=== PATIENT | female | born 1945 | race Caucasian/White ===

== ENCOUNTER 2017-08-11 18:03 | Inpatient (IN) | payer MEDICARE, BC ==
--- NOTE | 2017-08-11 18:39 | ED ---
General Adult HPI - General Chief complaint: Recheck/Abnormal Lab/Rx Stated complaint: renal failure Time Seen by Provider: 08/11/17 18:05 Source: EMS Mode of arrival: EMS Limitations: no limitations - History of Present Illness Initial comments: This is a 71-year-old female with recent history of end-stage renal disease on dialysis Thursday and Thursday who presents emergency department for missed dialysis. The patient was recently discharged from [facility] after being there for 5 weeks for rehab. She states that since being home her legs become weak and she has not been able to get out of her house. She has not been able to go to dialysis patient. She missed 2 sessions of dialysis. She went to an outside hospital seeking help for getting dialysis and she was referred here. The patient has no acute complaints at this time just feels generally weak. She has not fallen. No shortness of breath or chest pain. He is no confusion area she simply here because she is weak and unable to get her dialysis done. - Related Data Home Medications Medication Instructions Recorded Confirmed Aspirin EC [Ecotrin Low Dose] 81 mg PO HS 06/23/17 06/23/17 Atorvastatin [Lipitor] 40 mg PO HS 06/23/17 06/23/17 Famotidine [Pepcid] 20 mg PO DAILY 06/23/17 06/23/17 Insulin NPH Hum/Reg Insulin Hm 25 unit SQ QAM 06/23/17 06/23/17 [NovoLIN 70-30 100 UNIT/ML VIAL] Insulin NPH Hum/Reg Insulin Hm 35 unit SQ HS 06/23/17 06/23/17 [NovoLIN 70-30 100 UNIT/ML VIAL] Insulin Regular, Human [NovoLIN R] 20 unit SQ ACHS 06/23/17 06/23/17 Levothyroxine Sodium [Synthroid] 25 mcg PO DAILY 06/23/17 06/23/17 Metoprolol/Hydrochlorothiazide 1 tab PO BID 06/23/17 06/23/17 [Lopressor Hct 50-25 mg Tab] Potassium Chloride [K-Tab ER] 10 meq PO DAILY 06/23/17 06/23/17 Previous Rx's Medication Instructions Recorded Aspirin 325 mg PO DAILY #30 tab 02/01/14 Allergies Allergy/AdvReac Type Severity Reaction Status Date / Time hydrocodone bitartrate Allergy Unknown Verified 08/11/17 18:45 [From Vicodin] latex AdvReac Rash/Hives Verified 08/11/17 18:45 Review of Systems ROS Statement: Those systems with pertinent positive or pertinent negative responses have been documented in the HPI. ROS Other: All systems not noted in ROS Statement are negative. Past Medical History Past Medical History: Diabetes Mellitus, Hypertension, Renal Disease Additional Past Medical History / Comment(s): Obesity History of Any Multi-Drug Resistant Organisms: None Reported Past Surgical History: Bariatric Surgery, Cholecystectomy, Coronary Bypass/CABG , Hernia Repair Past Psychological History: No Psychological Hx Reported Smoking Status: Former smoker Past Alcohol Use History: None Reported Past Drug Use History: None Reported - Past Family History Sister(s) Family Medical History: Cancer Additional Family Medical History / Comment(s): breast cancer Father Family Medical History: Cancer Additional Family Medical History / Comment(s): lung cancer, diabetes Mother Family Medical History: Congestive Heart Failure (CHF) Additional Family Medical History / Comment(s): from CHF General Exam - General Exam Comments Initial Comments: Constitutional: Awake alert Appears comfortable, obese Head: Normocephalic atraumatic Eyes: no conjunctival injection No scleral icterus EOMI Neck: No JVD Supple Heart: Regular rate rhythm normal S1-S2 no murmurs Lungs: Clear to auscultation bilaterally No wheezing No rales Abdomen: Soft nondistended nontender Extremities: Bilateral lower extremity edema, there are bandages present on bilateral lower extremities, there is erythema in her legs that the patient reports is improved DP pulses intact Radial pulses intact Neuro: A&Ox3 No focal neurologic deficits Psych: Appropriate mood and affect Limitations: no limitations Course Vital Signs 08/11/17 18:06 Temperature 98.9 F Pulse Rate 67 Respiratory 16 Rate Blood Pressure 134/63 O2 Sat by Pulse 97 Oximetry Medical Decision Making - Medical Decision Making Is a 71-year-old female who presents emergency department for missed dialysis. She has been weak and home and unable to make it to her dialysis appointments. She lives alone and thus is going to require placement likely. I did speak with Dr. Collier about the patient's dialysis and he stated that he would set up for tomorrow since there is no emergent findings on her labwork. Sodium is 135, potassium 4.8, chloride 95, bicarb 29, BUN 64, creatinine 4.5.I spoke with Dr. Watkins except see admission like her placed in for her cellulitis. Like Dr. Fay and Dr. Claire on consult. Disposition Clinical Impression: Impaired ambulation, ESRD (end stage renal disease) Disposition: ADMITTED IP TO THIS HOSP Condition: Stable
[2017-08-11] MEDS ORDERED: NALOXONE 0.4 MG/ML 1 ML VIAL IV PRN (18:51)
[2017-08-11] MEDS ORDERED: IPRATROPIUM-ALBUTEROL 3 ML NEB INHALATION PRN (20:38)
[2017-08-11] MEDS ORDERED: LORazepam 0.5 MG TAB PO PRN (20:38)
[2017-08-11 20:54] LABS: Glucose,Whole Blood 153 mg/dL (75-99)
[2017-08-11] MEDS ORDERED: METOPROLOL TARTRATE 50 MG TAB PO SCH (21:00)
[2017-08-11] MEDS ORDERED: INSULIN ASPART 100 UNIT/ML 1 ML 10 ML VIAL SQ ONE (21:22)
[2017-08-11] MEDS: ceFAZolin 1,000 MG in DEXTROSE/WATER 1 50ML.BAG IVPB SCH (22:16)
[2017-08-11] MEDS: Acetaminophen-Codeine 300-30mg TAB PO PRN (22:38)
[2017-08-11] MEDS: ATORVASTATIN 40 MG TAB PO SCH (22:39)
[2017-08-11] MEDS: ASPIRIN 81 MG PO SCH (22:39)
[2017-08-11] MEDS: TORSEMIDE 20 MG TAB PO SCH (22:39)
[2017-08-11] MEDS: AMIODARONE 200 MG TAB PO SCH (22:39)
[2017-08-11] MEDS: HYDROCHLOROTHIAZIDE 25 MG TAB PO SCH (22:40)
[2017-08-11] MEDS: METOPROLOL TARTRATE 25 MG TAB PO SCH (22:40)
[2017-08-11] MEDS: diphenhydrAMINE 25 MG CAP PO PRN (22:42)
[2017-08-11] MEDS: INSULIN ASPART 100 UNIT/ML 1 ML 10 ML VIAL SQ SCH (22:42)
[2017-08-12] MEDS: Acetaminophen-Codeine 300-30mg TAB PO PRN ×3 (01:41→21:59)
[2017-08-12] MEDS: LEVOTHYROXINE 25 MCG TAB PO SCH (06:21)
[2017-08-12 07:02] LABS: Glucose,Whole Blood 122 mg/dL (75-99)
[2017-08-12] MEDS: INSULIN ASPART 100 UNIT/ML 1 ML 10 ML VIAL SQ SCH ×4 (07:42→22:11)
[2017-08-12 07:54] LABS: Basophils # (A) 0.1 k/uL (0-0.2); Basophils % (A) 1 %; Eosinophils # (A) 0.3 k/uL (0-0.7); Eosinophils % (A) 4 %; HCT 37.1 % (34.0-46.0); HGB 11.3 gm/dL (11.4-16.0); Hypochromasia Slight; Lymphocytes # (A) 0.9 k/uL (1.0-4.8); Lymphocytes % (A) 10 %; MCH 30.6 pg (25.0-35.0); MCHC 30.4 g/dL (31.0-37.0); MCV 100.4 fL (80.0-100.0); Macrocytosis Slight; Mean Platelet Volume 7.6; Monocytes # (A) 0.8 k/uL (0-1.0); Monocytes % (A) 8 %; Neutrophils # (A) 6.8 k/uL (1.3-7.7); Neutrophils % (A) 76 %; Platelet Count 223 k/uL (150-450); RDW 15.5 % (11.5-15.5)
[2017-08-12 08:24] LABS: Albumin 3.1 g/dL (3.5-5.0); Phosphorus 6.7 mg/dL (2.5-4.5); Potassium 4.9 mmol/L (3.5-5.1); Total Bilirubin 0.5 mg/dL (0.2-1.3); Total Protein 6.3 g/dL (6.3-8.2)
[2017-08-12] MEDS: METOPROLOL TARTRATE 25 MG TAB PO SCH ×2 (09:39→21:59)
[2017-08-12] MEDS: ASPIRIN 325 MG TAB PO SCH (09:39)
[2017-08-12] MEDS: HYDROCHLOROTHIAZIDE 25 MG TAB PO SCH ×2 (09:40→21:59)
[2017-08-12] MEDS: TORSEMIDE 20 MG TAB PO SCH (09:40)
[2017-08-12] MEDS: FAMOTIDINE 20 MG TAB PO SCH (09:40)
[2017-08-12] MEDS: AMIODARONE 200 MG TAB PO SCH (09:40)
[2017-08-12] MEDS: ceFAZolin 1,000 MG in DEXTROSE/WATER 1 50ML.BAG IVPB SCH ×2 (09:40→21:59)
[2017-08-12] MEDS: diphenhydrAMINE 25 MG CAP PO PRN ×2 (09:47→21:59)
[2017-08-12 11:51] LABS: Glucose,Whole Blood 245 mg/dL (75-99)
--- NOTE | 2017-08-12 14:31 | P.NPCON ---
History of Present Illness - Reason for Consult end stage renal disease - History of Present Illness Reason for consultation: End-stage renal disease History of present illness: Patient is a 71-year-old female seen in renal consultation for end-stage renal disease. She is maintained on hemodialysis on a Thursday schedule. Patient was recently discharged from an ECF and went back home about 5 days ago. Patient states she felt weak and was able to make it to hemodialysis. She missed her Thursday and also yesterday's treatment. Patient presented to the hospital as she was concerned of missing dialysis. She was currently seen one undergoing hemodialysis. She denies any chest pain or shortness of breath. She is noted to have lower extremity cellulitis for which she is maintained on antibiotics per infectious disease recommendations. Denies any nausea or vomiting. Denies fever or chills. Hemodynamically stable. No active complaints at this time. Vital signs are stable. General: The patient appeared well nourished and normally developed. HEENT: Head exam is unremarkable. Neck is without jugular venous distension. LUNGS: Lungs are clear to auscultation and percussion. Breath sounds decreased. HEART: Rate and Rhythm are regular. First and second heart sounds normal. No murmurs, rubs or gallops. ABDOMEN: Abdominal exam reveals normal bowel sounds. Non-tender and non- distended. No evidence of peritonitis. EXTREMITITES: 1+ edema. Lower extremity erythema noted. Chronic skin changes noted. Past Medical History Past Medical History: Heart Failure, Diabetes Mellitus, Hyperlipidemia, Hypertension, Renal Disease, Thyroid Disorder Additional Past Medical History / Comment(s): Hypothyroid, diabetic type 2. History of Any Multi-Drug Resistant Organisms: None Reported Past Surgical History: Bariatric Surgery, Cholecystectomy, Coronary Bypass/CABG , Hernia Repair Additional Past Surgical History / Comment(s): Lap band surgery. Past Psychological History: No Psychological Hx Reported Additional Psychological History / Comment(s): Single. Has a pet dog. He has stopped smoking and denies current alcohol use. Used to work on the farm in office. No experience. Lives at home alone. No international travel Smoking Status: Former smoker Past Alcohol Use History: None Reported Past Drug Use History: None Reported - Past Family History Sister(s) Family Medical History: Cancer Additional Family Medical History / Comment(s): Breast cancer Father Family Medical History: Cancer Additional Family Medical History / Comment(s): Lung cancer and diabetes Mother Family Medical History: Congestive Heart Failure (CHF) Additional Family Medical History / Comment(s): from CHF Medications and Allergies Home Medications Medication Instructions Recorded Confirmed Type Aspirin 325 mg PO DAILY #30 tab 02/01/14 08/12/17 Rx Aspirin EC [Ecotrin Low Dose] 81 mg PO HS 06/23/17 08/11/17 History Atorvastatin [Lipitor] 40 mg PO HS 06/23/17 08/12/17 History Insulin NPH Hum/Reg Insulin Hm 35 unit SQ HS 06/23/17 08/12/17 History [NovoLIN 70-30 100 UNIT/ML VIAL] Insulin Regular, Human [NovoLIN R] 25 unit SQ DAILY 06/23/17 08/12/17 History Levothyroxine Sodium [Synthroid] 25 mcg PO DAILY 06/23/17 08/12/17 History Amiodarone [Cordarone] 400 mg PO DAILY 08/11/17 08/12/17 History Ipratropium-Albuterol Nebulize 3 ml INHALATION RT-Q6H PRN 08/11/17 08/11/17 History [Duoneb 0.5 mg-3 mg/3 ml Soln] LORazepam [Ativan] 0.5 mg PO Q6H PRN 08/11/17 08/11/17 History Metoprolol Tartrate [Lopressor] 25 mg PO BID 08/11/17 08/12/17 History Torsemide [Demadex] 20 mg PO DAILY 08/11/17 08/12/17 History diphenhydrAMINE [Benadryl] 50 mg PO Q8H PRN 08/11/17 08/11/17 History Famotidine [Pepcid] 20 mg PO DAILY 08/12/17 08/12/17 History Insulin Aspart [NovoLOG See Protocol SQ ACHS 08/12/17 08/12/17 History (formulary)] Allergies Allergy/AdvReac Type Severity Reaction Status Date / Time hydrocodone bitartrate Allergy Unknown Verified 08/11/17 18:45 [From Vicodin] latex AdvReac Rash/Hives Verified 08/11/17 18:45 Physical Exam Vitals: Vital Signs Temp Pulse Pulse Resp BP BP Pulse Ox 08/12/17 09:51 62 16 08/12/17 07:00 97.8 F 62 16 105/43 96 08/11/17 23:00 98.7 F 67 18 122/64 95 08/11/17 19:51 97 F L 66 126/57 97 08/11/17 19:22 63 16 131/60 97 08/11/17 18:06 98.9 F 67 16 134/63 97 Intake and Output 08/11/17 08/12/17 08/12/17 22:59 06:59 14:59 Intake Total 100 Output Total 300 400 175 Balance -300 -400 -75 Intake: Oral 100 Output: Urine 300 400 175 Uretheral (Yañez) 300 Other: Voiding Method Indwelling Catheter Indwelling Catheter # Voids 0 Weight 133.81 kg 129.2 kg Results - Lab Results Most recent lab results Calcium 9.0 mg/dL (8.4-10.2) 08/12/17 07:32 Phosphorus 6.7 mg/dL (2.5-4.5) H 08/12/17 07:32 Magnesium 2.0 mg/dL (1.6-2.3) 08/12/17 07:32 08/12/17 07:32 08/12/17 07:32 Assessment and Plan Plan: Assessment: #1. End-stage renal disease maintained on hemodialysis on a Thursday schedule via a permacath. Patient was started on hemodialysis in June 2017 after she had an acute [place]. There appears to be no recovery in her renal function. #2. Hyperphosphatemia secondary to chronic kidney disease and missed dialysis. Expect improvement postdialysis. #3. Lower extremity cellulitis maintained on antibiotics per infectious disease recommendations. #4. Insulin-dependent diabetes mellitus. #5. History of coronary artery disease. #6. Metabolic acidosis secondary to chronic kidney disease. Expect improvement postdialysis. Plan: Currently seen while undergoing hemodialysis. Will try for 3 L ultrafiltration. Another treatment tomorrow per her outpatient schedule. Encouraged oral intake. Thank you for the consultation. I will continue to follow the patient with you during her hospital stay.
--- NOTE | 2017-08-12 16:25 | CONS ---
CONSULTATION DATE OF SERVICE: 08/12/2017 REASON FOR CONSULTATION: Bilateral foot wound and cellulitis. HISTORY OF PRESENT ILLNESS: The patient is a 71-year-old female with a past medical history significant for end-stage renal disease, on hemodialysis Thursday, , Thursday. The patient also has diabetic foot ulcers on both feet. She did have a wound on her left big toe and right second toe. The patient apparently was advised Medihoney on her last admission; however, apparently the patient did not apply any specific dressing to these wound areas. The patient came to the hospital, as the patient was too weak to go for her dialysis, and this made 2 treatments of dialysis. With concern about missing her dialysis, she presented to the ER. Subsequently the patient was admitted to the hospital for undergoing her dialysis treatment. Because of her wounds, ID was consulted for further recommendations. The patient currently denies any high-grade fever or chills. The patient did have some dull aching pain in the toe area for the last few days 3-4 out of 10 and no radiation And no worsening. The patient says she has been using some cream on it but was not able to tell me exactly what cream that was, on the right second toe. The patient did have some minimal erythema but no skin breakdown or drainage. The patient denies having any chest pain. No abdominal pain. No nausea, vomiting or any diarrhea. On arrival in the ER, the patient was afebrile and she had a normal white count of 9000. REVIEW OF SYSTEMS: CONSTITUTIONAL: Positive for weakness. No fever. EYES: No complaint. ENT: No complaint. RESPIRATORY: As per HPI. CARDIOVASCULAR: No complaint. GENITOURINARY: No complaint. GASTROINTESTINAL: No complaint. MUSCULOSKELETAL: As per HPI. INTEGUMENTARY: As per HPI. PSYCHOLOGICAL: No complaint. ENDOCRINE: No complaint. NEUROLOGICAL: No complaint. PAST MEDICAL HISTORY: 1. Hypertension. 2. Hyperlipidemia. 3. End-stage renal disease, on hemodialysis. 4. Hypothyroidism. 5. Diabetes mellitus. 6. Heart failure. PAST SURGICAL HISTORY: 1. Cholecystectomy. 2. Coronary artery bypass grafting. 3. Hernia repair. 4. Lap band surgery. SOCIAL HISTORY: Remote history of smoking. No drinking or drug use. FAMILY HISTORY: Sister with a history of breast cancer. Father with a history of lung cancer, diabetes. ALLERGIES: HYDROCODONE AND LATEX. CURRENT MEDICATIONS: The patient is currently on: 1. Tylenol. 2. DuoNeb. 3. Amiodarone. 4. Aspirin. 5. Lipitor. 6. Cefazolin 1 gram b.i.d. 7. Benadryl. 8. Pepcid. 9. Hydrochlorothiazide. 10.NovoLog. 11.Synthroid. 12.Ativan. 13.Lopressor. 14.Narcan. 15.Demadex. PHYSICAL EXAMINATION: Blood pressure 128/52 with a pulse of 51, temperature 97.5. She is 99% on room air. General description is an elderly female lying in bed in no distress. No tachypnea or accessory muscle of respiration use. HEENT examination shows slight pallor. No scleral icterus. Oral mucous membranes are dry. No pharyngeal erythema or thrush NECK: Trachea is central. No thyromegaly. LUNGS: Unlabored breathing. Clear to auscultation anteriorly. No wheeze or crackle. HEART: S1, S2. Regular rate and rhythm. No murmur ABDOMEN: Soft. No tenderness. No guarding or rigidity. Organomegaly EXTREMITIES: Some chronic swelling and discoloration. The patient did have a right second toe which currently looks slightly discolored, but no open wound was noticed on the dorsum. left big toe is dry with no swelling, no redness or any drainage. The patient did have minimal erythema of the right foot on some areas. Neurologically the patient is awake, alert, oriented x3. Mood and affect normal. LABS: Hemoglobin is 11.3, white count of 9.0, BUN of 74, creatinine 4.70. Electrolytes have been normal. Liver enzymes are normal. DIAGNOSTIC IMPRESSION AND PLAN: 1-Patient with diabetic foot ulcers on the left big toe. It looks dry with no evidence of any cellulitis or infection. The right second toe looks slightly discolored on the dorsum; did have some moist area, but no definite drainage was noticed. There was minimal erythema of the right foot area in a patient with no fever and no elevated white count. 2complicated risk factor including end-stage renal disease an presented confirmedd fluid overlaod PLAN: 1. Will obtain x-rays of the right foot looking at the right second toe to make sure there is no evidence of any bony changes. 2. Will keep these wounds dry as much as possible and may benefit from a light Jalil wrap to keep some of the swelling down. 3. Patient will be given IV cefazolin 2 g daily in view of her creatinine clearance 4. Depending upon the clinical response, will adjust her medications further if needed. Thank you for this consultation. Will follow this patient along with you. NAHID / RAMY: [id number] / MTDD
[2017-08-12 17:06] LABS: Glucose,Whole Blood 146 mg/dL (75-99)
--- NOTE | 2017-08-12 18:44 | XR ---
EXAMINATION TYPE: XR foot complete RT DATE OF EXAM: 08/12/2017 COMPARISON: NONE HISTORY: Pain TECHNIQUE: 3 views FINDINGS: There is a plantar calcaneal spur. There is a plate and screw fixating the medial and later al malleolus. There is vascular calcification. There is soft tissue swelling of the foot and ankle. I see no focal bone destruction. IMPRESSION: Soft tissue swelling. No sign of osteomyelitis. Osteopenia.
[2017-08-12 20:12] LABS: Hemoglobin A1C 6.8 % (4.0-6.0)
[2017-08-12 21:42] LABS: Glucose,Whole Blood 199 mg/dL (75-99)
[2017-08-12] MEDS: ATORVASTATIN 40 MG TAB PO SCH (21:58)
[2017-08-12] MEDS: ASPIRIN 81 MG PO SCH (21:59)
--- NOTE | 2017-08-12 23:52 | HP ---
HISTORY AND PHYSICAL CHIEF COMPLAINT: A 71-year-old white female with end-stage renal disease. HISTORY OF PRESENT ILLNESS: This is a 71-year-old white female. Renal consultation for end-stage renal disease. She is on hemodialysis Thursday, , Thursday. [facility]. She felt weak, missed dialysis x2. She came to the hospital for worsening shortness of breath. In fact, worsening infection in her legs and shortness of breath due to missing dialysis. PAST MEDICAL HISTORY: 1. Heart failure. 2. Diabetes mellitus. 3. Dyslipidemia. 4. Hypertension. 5. Renal disease. 6. Cellulitis of the legs. 7. Morbid obesity. 8. Hypothyroidism. 9. Type 2 diabetes mellitus. PAST SURGICAL HISTORY: 1. Bariatric surgery. 2. Cholecystectomy. 3. CABG surgery. 4. Hernia repair. SOCIAL HISTORY: She is single. Pet dog. Quit smoking. No alcohol use. 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 No international travel. Former smoker. FAMILY HISTORY: Sister had cancer of the breast. Father had cancer of lungs, diabetes. Mother with heart failure. MEDICATIONS: 1. Aspirin. 2. Lipitor. 3. Novolin 70/30. 4. Novolin R. 5. Synthroid 25 mcg. 6. Cordarone 400 daily. 7. DuoNeb q.i.d. 8. Ativan 0.5 q.6 hours. 9. Lopressor 25 b.i.d. 10.Demadex 20 daily. 11.Benadryl 50 q.8. 12.Pepcid 20 daily. 13.NovoLog before meals and at bedtime. ALLERGIES: LATEX, HYDROCODONE. PHYSICAL EXAMINATION: Temperature 97 to 98, pulse 60s to 70s, respiratory rate 16 to 18, blood pressure 130s over 60s to 70s, oxygen 95% to 97% on room air. CARDIOVASCULAR: S1, S2. LUNGS: Clear. GI: Soft, distended. Obesity. ENDOCRINE: BMI is over 40. INTEGUMENT: Redness and swelling of the lower extremities; 3+ pedal edema. PSYCH: Fair mood and affect. NEUROLOGIC: Alert and oriented x3. ASSESSMENT: 1. End-stage renal disease. 2. Hyperphosphatemia. 3. Cellulitis of the lower extremities. 4. Insulin-dependent diabetes mellitus. 5. Coronary artery disease. 6. Metabolic acidosis. Continue with IV antibiotics. Dialysis will be started. Possibly a new rehab center will be found in the next 2 to 3 days. MMODL / IJN: [id number] /
[2017-08-13] MEDS: LEVOTHYROXINE 25 MCG TAB PO SCH (05:44)
[2017-08-13 07:31] LABS: Glucose,Whole Blood 139 mg/dL (75-99)
[2017-08-13] MEDS: Acetaminophen-Codeine 300-30mg TAB PO PRN ×2 (07:52→17:27)
[2017-08-13] MEDS: diphenhydrAMINE 25 MG CAP PO PRN ×2 (07:52→17:27)
[2017-08-13] MEDS: ceFAZolin 1,000 MG in DEXTROSE/WATER 1 50ML.BAG IVPB SCH ×2 (07:52→21:23)
[2017-08-13] MEDS: INSULIN ASPART 100 UNIT/ML 1 ML 10 ML VIAL SQ SCH ×4 (07:53→22:14)
[2017-08-13] MEDS: ASPIRIN 325 MG TAB PO SCH (07:53)
[2017-08-13] MEDS: TORSEMIDE 20 MG TAB PO SCH (07:54)
[2017-08-13] MEDS: FAMOTIDINE 20 MG TAB PO SCH (07:54)
[2017-08-13] MEDS: HYDROCHLOROTHIAZIDE 25 MG TAB PO SCH ×2 (07:54→21:23)
[2017-08-13] MEDS: AMIODARONE 200 MG TAB PO SCH (07:54)
[2017-08-13] MEDS: METOPROLOL TARTRATE 25 MG TAB PO SCH ×2 (07:54→21:23)
[2017-08-13 07:57] LABS: Basophils # (A) 0.1 k/uL (0-0.2); Basophils % (A) 1 %; Eosinophils # (A) 0.4 k/uL (0-0.7); Eosinophils % (A) 5 %; HCT 35.8 % (34.0-46.0); Hypochromasia Slight; Lymphocytes # (A) 0.9 k/uL (1.0-4.8); Lymphocytes % (A) 10 %; MCH 30.8 pg (25.0-35.0); MCHC 30.8 g/dL (31.0-37.0); MCV 100.1 fL (80.0-100.0); Macrocytosis Slight; Mean Platelet Volume 7.9; Monocytes # (A) 0.7 k/uL (0-1.0); Monocytes % (A) 9 %; Neutrophils # (A) 6.4 k/uL (1.3-7.7); Neutrophils % (A) 73 %; Platelet Count 245 k/uL (150-450); RBC 3.58 m/uL (3.80-5.40); RDW 15.4 % (11.5-15.5); WBC 8.7 k/uL (3.8-10.6)
[2017-08-13 08:16] LABS: Albumin 3.2 g/dL (3.5-5.0); Calcium 9.1 mg/dL (8.4-10.2); Potassium 4.7 mmol/L (3.5-5.1); Total Bilirubin 0.4 mg/dL (0.2-1.3); Total Protein 6.4 g/dL (6.3-8.2)
[2017-08-13 08:41] LABS: C Reactive Protein 72.1 mg/L (<10.0)
[2017-08-13 09:19] LABS: Erythrocyte Sedimentation Rate 50 mm/hr (0-20)
--- NOTE | 2017-08-13 09:43 | CONS ---
CONSULTATION This is a 71-year-old, white female, known to me from the past. Patient has history of dialysis. She has a right IJ catheter placed for dialysis. The patient has been admitted with history of cellulitis of the right lower extremity and also found to have marked swelling of the right foot dorsal aspect with second toe gangrene changes for the past few months. PAST MEDICAL HISTORY: Past medical history includes history of heart failure, diabetes, history of hypertension, history of renal disease, history of morbid obesity, type 2 diabetes. SURGICAL HISTORY: Patient had bariatric surgery done in the past, cholecystectomy, CABG surgery in the past, hernia repair in the past. PHYSICAL EXAMINATION: On examination, the patient was seen in her room. Neck is supple. Trachea central. Chest examination is clear. First and second sounds normal. Abdomen is soft. VASCULAR EXAMINATION: Femorals are 1+. Posterior tibials and dorsalis pedis not palpable. Patient has marked swelling and redness of the right lower extremity with second toe gangrene changes. PLAN: Plan is continue with Medihoney gel and the patient will need amputation of the right foot second toe. Risks and complications, nonhealing and infection have been discussed. MMODL / IJN: [id number] /
[2017-08-13 12:07] LABS: Glucose,Whole Blood 151 mg/dL (75-99)
--- NOTE | 2017-08-13 17:02 | PN ---
PROGRESS NOTE DATE OF SERVICE: 08/13/2017. REASON FOR FOLLOWUP: Right 2nd toe gangrene and cellulitis left foot ulcer. INTERVAL HISTORY: The patient is afebrile. She is currently breathing comfortably. Right foot did have some swelling and redness and some discoloration of the right 2nd toe. Denies any pain or itching. Denies any pain or swelling of the left foot area at the base of the big toe. Breathing has improved. No nausea, vomiting. No diarrhea. EXAMINATION: Blood pressure is 146/46 with a pulse of 51, temperature of 97. He is 97% on room air. General description is an elderly female, lying in bed in no distress. RESPIRATORY SYSTEM: Unlabored breathing. Clear to auscultation anteriorly. HEART: S1, S2. Regular rate. ABDOMEN: Soft, no tenderness. Right 2nd toe is slightly discolored to dorsum of the foot. Left big toe with no swelling or redness. LABS: Hemoglobin 11, white count of 8.7, BUN of 15, creatinine 3.7. She did have x- rays of the right foot with no evidence of any osteo. DIAGNOSTIC IMPRESSION AND PLAN: Patient with right foot cellulitis with component of right 2nd toe discoloration , possible gangrene. Vascular Surgery has evaluated the patient and recommending possible amputation at which time deep culture should be obtained. Keep the patient on cefazolin at this time. Continue supportive care. MMODL / IJN: [id number] / MTDD
[2017-08-13 17:26] LABS: Glucose,Whole Blood 228 mg/dL (75-99)
[2017-08-13] MEDS: ATORVASTATIN 40 MG TAB PO SCH (21:23)
[2017-08-13] MEDS: ASPIRIN 81 MG PO SCH (21:23)
[2017-08-13] MEDS ORDERED: MORPHINE SULFATE 4 MG/ML SYRINGE IV PRN (21:25)
[2017-08-13] MEDS ORDERED: fentaNYL (PF) 50 MCG/ML 2 ML AMP IV PRN (21:25)
[2017-08-13 22:26] LABS: Glucose,Whole Blood 152 mg/dL (75-99)
--- NOTE | 2017-08-13 23:35 | PN ---
PROGRESS NOTE SUBJECTIVE: This 71-year-old white female is scheduled to have fluid removed from the dorsum of her foot due to increased swelling by Dr. Dunn today. She is scheduled for amputation of the second toe of the right foot tomorrow. She is getting dialysis 3 times a week and she is getting Accu-Chek protocol. Remains on cellulitis treatment of the leg. CARDIOVASCULAR: S1 and S2. LUNGS: Clear. GI: Soft. ENDOCRINE: BMI is over 40. ASSESSMENT: 1. Gangrene of the second toe of the right foot. 2. Diabetic wound. 3. Foot infection. 4. Cellulitis of the lower extremities. 5. End-stage renal disease. Prognosis is guarded. Possible amputation in the morning by Dr. Dunn. Continue with antibiotics and diuresis with dialysis 3-4 times a week. MMODL / IJN: [id number] /
[2017-08-14] MEDS: LACTATED RINGERS 1,000 ML IV SCH (00:57)
[2017-08-14] MEDS: LEVOTHYROXINE 25 MCG TAB PO SCH (05:58)
[2017-08-14 07:12] LABS: Glucose,Whole Blood 137 mg/dL (75-99)
[2017-08-14] MEDS: INSULIN ASPART 100 UNIT/ML 1 ML 10 ML VIAL SQ SCH ×4 (07:55→23:36)
[2017-08-14] MEDS: ASPIRIN 325 MG TAB PO SCH (07:59)
[2017-08-14] MEDS: HYDROCHLOROTHIAZIDE 25 MG TAB PO SCH ×2 (08:09→22:03)
[2017-08-14] MEDS: ceFAZolin 1,000 MG in DEXTROSE/WATER 1 50ML.BAG IVPB SCH ×2 (09:46→22:01)
[2017-08-14] MEDS: FAMOTIDINE 20 MG TAB PO SCH (09:46)
[2017-08-14] MEDS: AMIODARONE 200 MG TAB PO SCH (09:46)
[2017-08-14] MEDS: METOPROLOL TARTRATE 25 MG TAB PO SCH ×2 (09:46→23:10)
[2017-08-14] MEDS: AMMONIUM LACTATE 12% LOTION 225 GM BTL TOPICAL SCH ×3 (09:46→22:32)
[2017-08-14] MEDS: TORSEMIDE 20 MG TAB PO SCH (09:47)
[2017-08-14 12:38] LABS: Glucose,Whole Blood 114 mg/dL (75-99)
[2017-08-14] MEDS ORDERED: IV FLUID CONTINUATION 1,000 ML IV ONE (12:39)
[2017-08-14] MEDS ORDERED: MIDAZOLAM 2 MG/2 ML VIAL ONE (13:24)
[2017-08-14] MEDS ORDERED: fentaNYL (PF) 50 MCG/ML 2 ML AMP ONE (13:24)
[2017-08-14] MEDS ORDERED: PROPOFOL 10 MG/ML 20 ML VIAL IV ONE (13:24)
[2017-08-14] MEDS ORDERED: LIDOCAINE 1% INJ 10MG/ML (20 ML MDV) SQ ONE ×2 (13:39)
--- NOTE | 2017-08-14 14:33 | OP ---
OPERATIVE REPORT PREOPERATIVE DIAGNOSIS: Wet gangrene of the right foot, second toe. OPERATION: Ray amputation of right foot, second toe. This patient has infected right foot, second toe with marked swelling and from the dorsal aspect of the foot. Patient had a history of chronic renal failure on dialysis. Patient was brought to the operating room. Right foot was prepped and draped by sterile manner. Incision was admitted at base of the second toe. Deepened through skin, fat, and fascia. Tendons were divided on the plantar dorsal aspect of the foot, then the proximal phalanx was divided and there was some bleeding points which were controlled by placing a suture ligation. Fascia was approximated with 4-0 Vicryl with interrupted suture. We kept the wound open because of infection. Wound was packed with a dressing and a pressure dressing was applied. Patient tolerated the procedure well. We sent the toe for culture and sensitivity. MMODL / IJN: [id number] /
[2017-08-14] MEDS: Acetaminophen-Codeine 300-30mg TAB PO PRN ×2 (16:42→22:02)
--- NOTE | 2017-08-14 17:32 | PN ---
PROGRESS NOTE DATE OF SERVICE: 08/14/2017 REASON FOR FOLLOWUP: Right second toe gangrene and cellulitis. INTERVAL HISTORY: The patient is afebrile. The patient was taken to the OR and is status post right second toe amputation. The patient tolerated the procedure. Denies any worsening pain in the right foot area. No chest pain or shortness of breath or cough. No abdominal pain or diarrhea. PHYSICAL EXAMINATION: Blood pressure 103/45 with a pulse of 52, temperature 96.6. She is 100% on 3 L nasal cannula. General description is an elderly female lying in bed in no distress. RESPIRATORY SYSTEM: Unlabored breathing. Clear to auscultation anteriorly. HEART: S1, S2. Regular rate and rhythm. ABDOMEN: Soft. No tenderness. Left foot is currently dressed up. There is some blood-stained drainage on the dressing. LABS: White count 8.7. DIAGNOSTIC IMPRESSION AND PLAN: Patient with left second toe gangrene with component of possible osteomyelitis, status post amputation. Will wait for the culture to finalize. Antibiotic will be switched to vancomycin until the cultures are finalized. Continue with supportive care. MMODL / IJN: [id number] /
[2017-08-14 17:40] LABS: Glucose,Whole Blood 99 mg/dL (75-99)
--- NOTE | 2017-08-14 18:34 | PN ---
PROGRESS NOTE SUBJECTIVE: 71-year-old white female who is status post toe amputation of the second toe of the right foot. Awaiting cultures of fluid drained out of the right foot. For long-term antibiotic use, infectious disease has been monitoring her. Sugars have been mid 100s. Cardiovascular S1-S2. Lungs transmitted upper air way sounds. Hematology negative Homans. Psych: Fair mood and affect. ASSESSMENT: 1. Status post right foot cellulitis, a component of right 2nd toe possible gangrene. Deep culture wounds are pending. Keep on cefazolin. 2. Keep on diabetic medications for diabetes. 3. Morbid obesity. 4. Exfoliation, redness will continue to be treated with creams. Renal physician seen for Nephrology. Please see further orders. Progress note, need to go to [facility] on the [place] on discharge. MMODL / IJN: [id number] /
[2017-08-14 21:13] LABS: Glucose,Whole Blood 181 mg/dL (75-99)
[2017-08-14] MEDS: ATORVASTATIN 40 MG TAB PO SCH (22:02)
[2017-08-14] MEDS: ASPIRIN 81 MG PO SCH (22:02)
[2017-08-14] MEDS ORDERED: VANCOMYCIN IV PER PHARMACY 1 EACH MISC MISCELLANE PRN (22:17)
[2017-08-14] MEDS ORDERED: VANCOMYCIN 2,000 MG in SODIUM CHLORIDE 0.9% 500 ML IVPB ONE (23:00)
[2017-08-15] MEDS: LACTATED RINGERS 1,000 ML IV SCH ×2 (00:05→23:08)
[2017-08-15] MEDS: Acetaminophen-Codeine 300-30mg TAB PO PRN ×4 (06:00→23:07)
[2017-08-15] MEDS: LEVOTHYROXINE 25 MCG TAB PO SCH (06:01)
[2017-08-15] MEDS ORDERED: MIDODRINE 5 MG TAB PO PRN (07:21)
[2017-08-15 07:26] LABS: Glucose,Whole Blood 146 mg/dL (75-99)
[2017-08-15] MEDS ORDERED: MIDODRINE 5 MG TAB PO SCH (07:30)
[2017-08-15] MEDS: INSULIN ASPART 100 UNIT/ML 1 ML 10 ML VIAL SQ SCH ×4 (07:44→23:08)
--- NOTE | 2017-08-15 10:22 | PN ---
PROGRESS NOTE This patient had a right foot 2nd toe amputation done yesterday. She came with marked swelling of the dorsum aspect of the right foot. We did ray amputation of the right foot 2nd toe. Today we changed the dressing. Swelling in the foot is completely gone and we will use Aquacel for the wound which will be changed in 48 hours. The patient needs right foot elevation on a pillow. If the patient goes home, then we will follow in the office. The patient has a history of renal failure and she needs angiogram to evaluate for creation of fistula. MMODL / IJN: [id number] /
[2017-08-15] MEDS: METOPROLOL TARTRATE 25 MG TAB PO SCH ×3 (10:56→23:09)
[2017-08-15] MEDS: HYDROCHLOROTHIAZIDE 25 MG TAB PO SCH ×2 (10:56→23:07)
[2017-08-15] MEDS: FAMOTIDINE 20 MG TAB PO SCH (10:56)
[2017-08-15] MEDS: AMIODARONE 200 MG TAB PO SCH (10:56)
[2017-08-15] MEDS: TORSEMIDE 20 MG TAB PO SCH (10:56)
[2017-08-15] MEDS: ASPIRIN 325 MG TAB PO SCH (10:56)
[2017-08-15] MEDS: AMMONIUM LACTATE 12% LOTION 225 GM BTL TOPICAL SCH ×2 (10:57→23:10)
[2017-08-15 11:04] LABS: Anisocytosis Slight; Basophils % (A) 1 %; Eosinophils # (A) 0.3 k/uL (0-0.7); Eosinophils % (A) 4 %; HCT 36.3 % (34.0-46.0); HGB 11.3 gm/dL (11.4-16.0); Hypochromasia Slight; Lymphocytes # (A) 0.7 k/uL (1.0-4.8); Lymphocytes % (A) 9 %; MCH 30.5 pg (25.0-35.0); MCV 98.4 fL (80.0-100.0); Macrocytosis Slight; Mean Platelet Volume 8.4; Monocytes # (A) 0.6 k/uL (0-1.0); Monocytes % (A) 8 %; Neutrophils % (A) 77 %; Platelet Count 209 k/uL (150-450); RBC 3.69 m/uL (3.80-5.40); RDW 16.3 % (11.5-15.5); WBC 7.7 k/uL (3.8-10.6)
[2017-08-15 11:26] LABS: Glucose,Whole Blood 92 mg/dL (75-99)
[2017-08-15 11:36] LABS: Albumin 3.1 g/dL (3.5-5.0); Calcium 9.2 mg/dL (8.4-10.2); Potassium 3.3 mmol/L (3.5-5.1); Total Bilirubin 0.5 mg/dL (0.2-1.3); Total Protein 6.4 g/dL (6.3-8.2)
--- NOTE | 2017-08-15 14:19 | PN ---
PROGRESS NOTE SUBJECTIVE: A 71-year-old white female, status post amputation of the 2nd toe on the right foot yesterday, difficulty with ambulation, getting dialysis today. Awaiting Infectious Disease and deep cultures done of the wound to see what the possible infection could be and help with long-term antibiotics will be needed. She is scheduled to go to [facility] on the [place] on Thursday. CARDIOVASCULAR: S1, S2. Lungs clear. ENDOCRINE: BMI is over 40. GI: Soft. HEMATOLOGY: Negative Homans. PSYCH: Fair mood and affect. ASSESSMENT: 1. Status post amputation. 2. Diabetic wound infection. 3. Diabetic leg infection. 4. End-stage renal disease. 5. Diastolic congestive heart failure, chronic obstructive pulmonary disease. PROGNOSIS: Extremely poor. Continue current treatment. Follow up in the next 24 to 48 hours. Continue with dialysis and broad-spectrum antibiotics. MMODL / IJN: [id number] /
[2017-08-15] MEDS ORDERED: VANCOMYCIN 2,000 MG in SODIUM CHLORIDE 0.9% 500 ML IVPB ONE (16:00)
[2017-08-15 17:12] LABS: Glucose,Whole Blood 176 mg/dL (75-99)
--- NOTE | 2017-08-15 19:43 | PN ---
PROGRESS NOTE Patient is seen for followup for end-stage renal disease. She is status post re- amputation of her 2nd toe on the right foot. The patient is currently seen on hemodialysis. She tolerated her treatment fairly well. Blood pressures have been stable. Heart rate about 58-90 per minute. Patient is afebrile. EXAMINATION: Shows significant wrinkling of the skin noted on bilateral lower extremities, mainly on the right leg. Chronic skin changes are noted in the left lower extremity with erythema, which also appears to be chronic. Abdomen is soft, obese, nontender. LABS: Sodium 138, potassium 3.3. Hemoglobin 11.3 g/dL. ASSESSMENT: 1. End-stage renal disease, on hemodialysis on a Thursday, , Thursday schedule, currently being dialyzed by internal jugular PermCath. 2. Gangrene, right 2nd toe, status post ray amputation. 3. Generalized debility. 4. Volume overload, slowly improving. PLAN: Next dialysis will be on Thursday and if patient is discharged on Thursday, we will dialyze as outpatient. She is advised to continue to maintain good oral intake. MMODL / IJN: [id number] /
[2017-08-15 21:18] LABS: Glucose,Whole Blood 187 mg/dL (75-99)
[2017-08-15] MEDS: ATORVASTATIN 40 MG TAB PO SCH (23:07)
--- NOTE | 2017-08-15 23:31 | PN ---
PROGRESS NOTE DATE OF SERVICE: 08/15/2017 REASON FOR FOLLOWUP: Right 2nd toe gangrene and cellulitis. INTERVAL HISTORY: The patient is afebrile. She is breathing comfortably. Denies having any chest pain. Occasional cough. No abdominal pain and no worsening pain in the right foot area. EXAMINATION: Blood pressure 115/43 with a pulse of 96, temperature of 98.5. She is 93% on room air. General description is an elderly female, up in the chair in no distress. RESPIRATORY SYSTEM: Unlabored breathing. Clear to auscultation anteriorly. HEART: S1, S2. Regular rate and rhythm. ABDOMEN: Soft. No tenderness. Right foot currently dressed with minimal drainage on the dressing. LABS: Hemoglobin 11.2, white count 7.7 with a BUN of 19, creatinine is 1.86. DIAGNOSTIC IMPRESSION AND PLAN: Patient with right 2nd toe gangrene, status post amputation. Culture now shows gram- negative. Fortaz will be added while waiting for the culture to finalize. Continue with supportive care. MMODL / IJN: [id number] /
[2017-08-16] MEDS: LEVOTHYROXINE 25 MCG TAB PO SCH (06:27)
[2017-08-16 07:36] LABS: Glucose,Whole Blood 160 mg/dL (75-99)
[2017-08-16] MEDS: INSULIN ASPART 100 UNIT/ML 1 ML 10 ML VIAL SQ SCH ×4 (08:20→21:26)
[2017-08-16] MEDS: ASPIRIN 325 MG TAB PO SCH (08:21)
[2017-08-16] MEDS: HYDROCHLOROTHIAZIDE 25 MG TAB PO SCH ×2 (08:21→20:46)
[2017-08-16] MEDS: Acetaminophen-Codeine 300-30mg TAB PO PRN (08:21)
[2017-08-16] MEDS: TORSEMIDE 20 MG TAB PO SCH (08:22)
[2017-08-16] MEDS: FAMOTIDINE 20 MG TAB PO SCH (08:22)
[2017-08-16] MEDS: METOPROLOL TARTRATE 25 MG TAB PO SCH ×2 (08:22→20:46)
[2017-08-16] MEDS: AMIODARONE 200 MG TAB PO SCH (08:22)
[2017-08-16] MEDS: AMMONIUM LACTATE 12% LOTION 225 GM BTL TOPICAL SCH ×2 (08:24→20:46)
[2017-08-16 08:38] LABS: Calcium 9.4 mg/dL (8.4-10.2)
[2017-08-16 08:39] LABS: Potassium 4.7 mmol/L (3.5-5.1)
[2017-08-16 08:45] LABS: Vancomycin,Random 24.6 ug/mL
[2017-08-16 11:20] LABS: Glucose,Whole Blood 249 mg/dL (75-99)
--- NOTE | 2017-08-16 13:38 | PN ---
PROGRESS NOTE SUBJECTIVE: This is a white female, 71 years ago, status post toe amputation of her right foot 2nd toe and has no chest pain, shortness of breath and no lightheadedness, dizziness and syncope. Sitting up in the chair at this time. Cardiovascular S1, S2. Lungs are clear. Endocrine: BMI is over 50. Integument shows severe stasis changes in lower legs, ammonium lactate cream took a lot of scaling off the legs in the last 24 hours. Toe amputation looks within normal limits. Being followed by Dr. Dunn who did the toe amputation. ASSESSMENT: 1. End-stage renal disease. 2. Status post toe amputation. 3. Gangrene. 4. Peripheral vascular disease. 5. Insulin-dependent diabetes mellitus. 6. Diastolic congestive heart failure. 7. Hypertension. PLAN: Continue with wound care on the right toes. Continue with close monitoring. Insulin. Diabetes. Continue with dialysis 3 times a week. Antibiotics pending. Deep wound cultures per Dr. Claire's recommendations. Await for Dr. Claire's recommendations for long-term IV antibiotics. MMODL / IJN: [id number] /
--- NOTE | 2017-08-16 15:14 | PN ---
PROGRESS NOTE Patient is seen for followup for end-stage renal disease. She is maintained on dialysis on a Thursday, , Thursday schedule. The patient was dialyzed yesterday. She states she is feeling fair. Her right foot is currently dressed. She had right 2nd toe ray amputation. EXAMINATION: Blood pressure is 136/59, heart rate 61 per minute. She is afebrile. Examination of the heart: S1, S2. Examination lungs: Bilateral breath sounds are heard. ABDOMEN: Soft, morbidly obese. Examination lower extremity shows chronic skin changes with significant erythema, edema. There is wrinkling of the skin noted in her right lower extremity suggesting significantly improved volume status over the past few weeks. LAB: Show potassium 4.7, sodium 138. ASSESSMENT: 1. End-stage renal disease, on hemodialysis on a Thursday, , Thursday schedule. 2. Gangrene of the toe status ray post amputation right 2nd toe. 3. Morbid obesity. 4. Diabetes. 5. Coronary artery disease with myocardial infarction about 2 months ago. PLAN: Next hemodialysis on Thursday. The patient will be switching to [facility] for outpatient care. MMODL / IJN: [id number] /
[2017-08-16 17:18] LABS: Glucose,Whole Blood 228 mg/dL (75-99)
[2017-08-16] MEDS: ATORVASTATIN 40 MG TAB PO SCH (20:46)
[2017-08-16] MEDS: LACTATED RINGERS 1,000 ML IV SCH (20:47)
[2017-08-16 20:50] LABS: Glucose,Whole Blood 334 mg/dL (75-99)
[2017-08-17] MEDS: Acetaminophen-Codeine 300-30mg TAB PO PRN ×4 (02:26→19:57)
[2017-08-17] MEDS: LEVOTHYROXINE 25 MCG TAB PO SCH (06:20)
--- NOTE | 2017-08-17 07:15 | PN ---
PROGRESS NOTE DATE OF SERVICE: 08/16/2017. REASON FOR FOLLOWUP: Right second toe gangrene and cellulitis. INTERVAL HISTORY: The patient is afebrile. Has been breathing comfortably. Still complains of some pain in the right foot area. Denies having any chest pain. Occasional cough. No abdominal pain. No diarrhea. PHYSICAL EXAMINATION: On examination, blood pressure is 102/49 with a pulse of 51, temperature 96.8. She is 94% on room air. General description is an elderly female up in the chair in no distress. RESPIRATORY SYSTEM: Unlabored breathing, clear to auscultation anteriorly. HEART: S1, S2. Regular rate and rhythm. ABDOMEN: Soft, no tenderness. Right foot second toe amputated site still looks dark with minimal drainage. LAB: No new labs have been obtained today. DIAGNOSTIC IMPRESSION AND PLAN: Patient with right second toe gangrene status post amputation, amputated site looks necrotic and this was discussed further with Vascular Surgery. Antibiotic continued in the form of vancomycin and Fortaz. Continue with supportive care. MMODL / IJN: [id number] / MTDWaqas
[2017-08-17 07:17] LABS: Glucose,Whole Blood 150 mg/dL (75-99)
[2017-08-17] MEDS: INSULIN ASPART 100 UNIT/ML 1 ML 10 ML VIAL SQ SCH ×4 (07:37→22:00)
[2017-08-17] MEDS: TORSEMIDE 20 MG TAB PO SCH (07:38)
[2017-08-17] MEDS: AMIODARONE 200 MG TAB PO SCH (07:38)
[2017-08-17] MEDS: ASPIRIN 325 MG TAB PO SCH (07:38)
[2017-08-17] MEDS: METOPROLOL TARTRATE 25 MG TAB PO SCH (07:39)
[2017-08-17] MEDS: FAMOTIDINE 20 MG TAB PO SCH (07:39)
[2017-08-17] MEDS: HYDROCHLOROTHIAZIDE 25 MG TAB PO SCH ×2 (07:39→20:01)
[2017-08-17 08:58] LABS: Calcium 9.6 mg/dL (8.4-10.2); Potassium 4.7 mmol/L (3.5-5.1)
[2017-08-17 09:03] LABS: Vancomycin,Random 21.8 ug/mL
--- NOTE | 2017-08-17 10:33 | P.PN ---
Subjective Patient is seen in follow-up for her incisional disease. She is maintained on hemodialysis on a Thursday schedule. She underwent right foot second toe amputation due to gangrene. She's currently sitting up in a chair. Denies chest pain or shortness of breath. Oral intake is fair. Vital signs are stable. General: The patient appeared well nourished and normally developed. HEENT: Head exam is unremarkable. Neck is without jugular venous distension. LUNGS: Lungs are clear to auscultation and percussion. Breath sounds decreased. HEART: Rate and Rhythm are regular. First and second heart sounds normal. No murmurs, rubs or gallops. ABDOMEN: Abdominal exam reveals normal bowel sounds. Non-tender and non- distended. No evidence of peritonitis. EXTREMITITES: Chronic skin changes noted. Right foot wrapped with drainage noted. Objective - Vital Signs Vital signs: Vital Signs Temp 98.2 F 08/17/17 07:00 Pulse 59 L 08/17/17 07:46 Resp 16 08/17/17 07:46 BP 110/54 08/17/17 07:00 Pulse Ox 97 08/17/17 07:00 Intake & Output 08/16/17 08/17/17 08/17/17 18:59 06:59 18:59 Intake Total 240 Output Total 0 25 Balance 240 -25 Weight 131 kg 131 kg Intake: Oral 240 Output: Urine 25 Stool 0 Other: Voiding Method Bedside Commode Bedside Commode Bedside Commode # Voids 1 0 # Bowel Movements 1 - Labs CBC & Chem 7: 08/15/17 10:45 08/17/17 07:56 Labs: Abnormal Lab Results - Last 24 Hours (Table) 08/16/17 08/16/17 08/16/17 Range/Units 11:18 17:10 20:49 BUN (7-17) mg/dL Creatinine (0.52-1.04) mg/dL Glucose (74-99) mg/dL POC Glucose (mg/dL) 249 H 228 H 334 H (75-99) mg/dL 08/17/17 08/17/17 Range/Units 06:59 07:56 BUN 46 H (7-17) mg/dL Creatinine 4.40 H (0.52-1.04) mg/dL Glucose 148 H (74-99) mg/dL POC Glucose (mg/dL) 150 H (75-99) mg/dL Microbiology - Last 24 Hours (Table) 08/14/17 13:47 Gram Stain - Final Toe - Right Second Tissue Culture - Final 08/13/17 07:39 Gram Stain - Final Aspirate Body Fluid Culture - Final Assessment and Plan Plan: Assessment: #1. End-stage renal disease maintained on hemodialysis on a Thursday schedule via a permacath. Patient was started on hemodialysis in June 2017 after she had an acute DC. There appears to be no recovery in her renal function. #2. Hyperphosphatemia secondary to chronic kidney disease and missed dialysis. Improved. #3. Lower extremity cellulitis maintained on antibiotics per infectious disease recommendations. Status post right foot second toe amputation. #4. Insulin-dependent diabetes mellitus. #5. History of coronary artery disease. #6. Metabolic acidosis secondary to chronic kidney disease. Improved. Plan: Hemodialysis tomorrow with goal 3-4 L ultrafiltration. Encouraged oral intake.
[2017-08-17] MEDS: AMMONIUM LACTATE 12% LOTION 225 GM BTL TOPICAL SCH ×2 (11:00→20:01)
[2017-08-17 12:07] LABS: Glucose,Whole Blood 240 mg/dL (75-99)
[2017-08-17] MEDS ORDERED: VANCOMYCIN 2,000 MG in SODIUM CHLORIDE 0.9% 500 ML IVPB ONE (14:00)
[2017-08-17] MEDS ORDERED: LACTULOSE 20 GM/30 ML CUP PO PRN (16:15)
[2017-08-17 17:05] LABS: Glucose,Whole Blood 182 mg/dL (75-99)
[2017-08-17] MEDS: ATORVASTATIN 40 MG TAB PO SCH (20:01)
[2017-08-17] MEDS: METOPROLOL TARTRATE 12.5 MG TAB PO SCH (20:01)
[2017-08-17 20:49] LABS: Glucose,Whole Blood 237 mg/dL (75-99)
--- NOTE | 2017-08-17 23:21 | PN ---
PROGRESS NOTE SUBJECTIVE: 61-year-old white female admitted with right 2nd toe gangrene and cellulitis of the legs. magnesium oxalate cream is being used for the leg scaliness. Awaiting deep cultures of the wound. She has mild sloughing of the skin off the right top of the right foot and it is extremely red to the right foot. Vancomycin, Fortaz is on board right now. Possible long-term IV antibiotics will be needed. Awaiting Dr. Claire's recommendation. Dr. Fay seen her for renal function. Oral intake is fair. Cardiovascular S1-S2, lungs scattered wheeze. Abdomen is distended, obesity. Extremities show extreme swelling of the extremities chronic skin changes in the anterior tibial areas. LABORATORY DATA: Labs show BUN of 46, creatinine 4.4. ASSESSMENT: 1. End-stage renal disease. 2. Hyperphosphatemia. 3. Lower leg cellulitis. 4. Right 2nd toe amputation. 5. Insulin-dependent diabetes mellitus. 6. Coronary artery disease. 7. Metabolic acidosis. Continue with dialysis, IV Fortaz, IV vancomycin, await deep tissue cultures. MMODL / IJN: [id number] /
[2017-08-18] MEDS: LEVOTHYROXINE 25 MCG TAB PO SCH (06:40)
[2017-08-18] MEDS: FAMOTIDINE 20 MG TAB PO SCH (07:48)
[2017-08-18] MEDS: HYDROCHLOROTHIAZIDE 25 MG TAB PO SCH ×2 (07:48→21:41)
[2017-08-18] MEDS: INSULIN ASPART 100 UNIT/ML 1 ML 10 ML VIAL SQ SCH ×4 (07:48→21:40)
[2017-08-18] MEDS: METOPROLOL TARTRATE 12.5 MG TAB PO SCH ×2 (07:48→21:40)
[2017-08-18] MEDS: TORSEMIDE 20 MG TAB PO SCH (07:48)
[2017-08-18] MEDS: AMIODARONE 200 MG TAB PO SCH (07:49)
[2017-08-18] MEDS: AMMONIUM LACTATE 12% LOTION 225 GM BTL TOPICAL SCH ×2 (07:49→21:41)
[2017-08-18] MEDS: ASPIRIN 325 MG TAB PO SCH (07:49)
[2017-08-18] MEDS: Acetaminophen-Codeine 300-30mg TAB PO PRN ×3 (07:50→21:41)
[2017-08-18 07:58] LABS: Glucose,Whole Blood 162 mg/dL (75-99)
--- NOTE | 2017-08-18 08:28 | PN ---
PROGRESS NOTE DATE OF SERVICE: 08/17/2017 REASON FOR FOLLOWUP: Right second toe gangrene with cellulitis. INTERVAL HISTORY: The patient is afebrile. She is breathing comfortably. Denies having any chest pain, cough, abdominal pain, or any worsening pain in the right foot area. PHYSICAL EXAMINATION: On examination, blood pressure 119/47 with a pulse of 50, temperature 96.7. She is 98% on room air. General description is an elderly female up in the bed, up in no distress. RESPIRATORY SYSTEM: Unlabored breathing, clear to auscultation anteriorly. HEART: S1, S2. Regular rate and rhythm. ABDOMEN: Soft, no tenderness. Right foot swelling persists. Redness has slightly improved. The amputated toe base still looks slightly necrotic with minimal drainage. LABS: BUN of 46, creatinine 4.40. DIAGNOSTIC IMPRESSION AND PLAN: Patient with right second toe gangrene, status post amputation with cellulitis. The patient at this time will continue on vancomycin and Fortaz. Discussed local care with Vascular Surgery. Should be treated with Aquacel Silver dressing at this point. Continue supportive care. MMODL / IJN: [id number] /
[2017-08-18 10:22] LABS: Basophils # (A) 0.1 k/uL (0-0.2); Basophils % (A) 1 %; Eosinophils # (A) 0.4 k/uL (0-0.7); Eosinophils % (A) 4 %; HCT 39.7 % (34.0-46.0); HGB 11.9 gm/dL (11.4-16.0); Hypochromasia Moderate; Lymphocytes # (A) 0.8 k/uL (1.0-4.8); Lymphocytes % (A) 7 %; MCH 30.4 pg (25.0-35.0); MCV 101.4 fL (80.0-100.0); Macrocytosis Slight; Mean Platelet Volume 8.2; Monocytes # (A) 0.9 k/uL (0-1.0); Monocytes % (A) 8 %; Neutrophils # (A) 8.6 k/uL (1.3-7.7); Neutrophils % (A) 78 %; Platelet Count 243 k/uL (150-450); RBC 3.91 m/uL (3.80-5.40); RDW 14.9 % (11.5-15.5)
[2017-08-18 10:35] LABS: Albumin 3.4 g/dL (3.5-5.0); Calcium 9.8 mg/dL (8.4-10.2); Potassium 5.5 mmol/L (3.5-5.1); Total Bilirubin 0.4 mg/dL (0.2-1.3); Total Protein 6.8 g/dL (6.3-8.2)
--- NOTE | 2017-08-18 11:12 | P.PN ---
Subjective Patient is seen in follow-up for end-stage renal disease. She is maintained on hemodialysis on a Thursday schedule. She underwent right foot second toe amputation due to gangrene. She's currently seen while undergoing hemodialysis. Denies chest pain or shortness of breath. Oral intake is fair. Vital signs are stable. General: The patient appeared well nourished and normally developed. HEENT: Head exam is unremarkable. Neck is without jugular venous distension. LUNGS: Lungs are clear to auscultation and percussion. Breath sounds decreased. HEART: Rate and Rhythm are regular. First and second heart sounds normal. No murmurs, rubs or gallops. ABDOMEN: Abdominal exam reveals normal bowel sounds. Non-tender and non- distended. No evidence of peritonitis. EXTREMITITES: Chronic skin changes noted. Right foot wrapped with drainage noted. Objective - Vital Signs Vital signs: Vital Signs Temp 97.2 F L 08/18/17 07:00 Pulse 54 L 08/18/17 07:00 Resp 18 08/18/17 07:00 BP 142/64 08/18/17 07:00 Pulse Ox 100 08/18/17 07:29 Intake & Output 08/17/17 08/18/17 08/18/17 18:59 06:59 18:59 Intake Total 600 240 Output Total 0 50 Balance 600 -50 240 Weight 131 kg 131 kg Intake: Intake, IV Titration 600 Amount Vancomycin 2,000 mg In 500 Sodium Chloride 0.9% 500 ml @ 167 mls/hr IVPB ONCE ONE Rx#:[id number] cefTAZidime 2 gm In 100 Sodium Chloride 0.9% 100 ml @ 100 mls/hr IVPB Q24H [facility] Rx#:[id number] Oral 240 Output: Urine 50 Stool 0 Other: Voiding Method Bedside Commode Bedside Commode Bedside Commode # Voids 0 1 1 # Bowel Movements 0 0 1 - Labs CBC & Chem 7: 08/18/17 08:52 08/18/17 08:52 Labs: Abnormal Lab Results - Last 24 Hours (Table) 08/17/17 08/17/17 08/17/17 Range/Units 11:57 17:00 20:36 WBC (3.8-10.6) k/uL MCV (80.0-100.0) fL MCHC (31.0-37.0) g/dL Neutrophils # (1.3-7.7) k/uL Lymphocytes # (1.0-4.8) k/uL Potassium (3.5-5.1) mmol/L Carbon Dioxide (22-30) mmol/L BUN (7-17) mg/dL Creatinine (0.52-1.04) mg/dL Glucose (74-99) mg/dL POC Glucose (mg/dL) 240 H 182 H 237 H (75-99) mg/dL Albumin (3.5-5.0) g/dL 08/18/17 08/18/17 08/18/17 Range/Units 07:32 08:52 08:52 WBC 11.0 H (3.8-10.6) k/uL MCV 101.4 H (80.0-100.0) fL MCHC 30.0 L (31.0-37.0) g/dL Neutrophils # 8.6 H (1.3-7.7) k/uL Lymphocytes # 0.8 L (1.0-4.8) k/uL Potassium 5.5 H (3.5-5.1) mmol/L Carbon Dioxide 21 L (22-30) mmol/L BUN 55 H (7-17) mg/dL Creatinine 5.13 H* (0.52-1.04) mg/dL Glucose 173 H (74-99) mg/dL POC Glucose (mg/dL) 162 H (75-99) mg/dL Albumin 3.4 L (3.5-5.0) g/dL Microbiology - Last 24 Hours (Table) 08/14/17 13:47 Anaerobic Culture - Final Toe - Right Second Assessment and Plan Plan: Assessment: #1. End-stage renal disease maintained on hemodialysis on a Thursday schedule via a permacath. Patient was started on hemodialysis in June 2017 after she had an acute [place]. There appears to be no recovery in her renal function. #2. Hyperphosphatemia secondary to chronic kidney disease and missed dialysis. Improved. #3. Lower extremity cellulitis maintained on antibiotics per infectious disease recommendations. Status post right foot second toe amputation. #4. Insulin-dependent diabetes mellitus. #5. History of coronary artery disease. #6. Metabolic acidosis secondary to chronic kidney disease. Plan: Currently seen while undergoing hemodialysis. Next treatment on . Encouraged oral intake.
[2017-08-18 12:26] LABS: Glucose,Whole Blood 204 mg/dL (75-99)
--- NOTE | 2017-08-18 14:03 | P.PN ---
Progress Note - Text 71-year-old white female, history of diabetes, history of chronic renal failure , patient had a left foot toe amputation and she has a marked swelling of the dorsal aspect the foot and some fluid retention stump side looks clean we will continue with local wound care most important thing is she should keep her foot 3 pillow elevation and we will continue with the Aquacel silver if patient goes home then we will follow in the wound clinic thank you very much
[2017-08-18 17:06] LABS: Glucose,Whole Blood 171 mg/dL (75-99)
[2017-08-18 20:37] LABS: Glucose,Whole Blood 171 mg/dL (75-99)
[2017-08-18] MEDS: ATORVASTATIN 40 MG TAB PO SCH (21:41)
[2017-08-18] MEDS: diphenhydrAMINE 25 MG CAP PO PRN (21:41)
--- NOTE | 2017-08-18 22:31 | PN ---
PROGRESS NOTE DATE OF SERVICE: 08/18/2017. REASON FOR FOLLOWUP: Right 2nd right foot second toe gangrene with cellulitis. INTERVAL HISTORY: The patient is afebrile. She has been breathing comfortably. Denies having any chest pain, cough, right foot remains to be swollen. The 2nd toe base with minimal necrotic area has some clear drainage. No purulence. EXAMINATION: Blood pressure is 113/40 with a pulse of 54, temperature of 97.3. She is 93% on room air. General description is an elderly female up in the chair in no distress. Respiratory system: Unlabored breathing, clear to auscultation anteriorly. Heart S1, S2 regular rate and rhythm. Abdomen is soft, no tenderness. Right foot still has some swelling. The redness is improved. The wound base with no significant purulent material or any foul-smelling drainage. LABS: Hemoglobin is 11.8, white count of 11 with a BUN of 55, creatinine is 5.13. Wound culture has been negative so far. DIAGNOSTIC IMPRESSION AND PLAN: Patient with right second toe gangrene status post amputation. The patient did have significant swelling in that foot that may have led to some of the ulceration on the amputated side. Case was discussed with surgery. Will be evaluating and advise regarding further debridement or no. Antibiotic will continue at this point in the form of Fortaz and Vanco. However as the patient was bacteremic, and no resistant pathogen, we will be able to finish therapy with oral antibiotics. Continue supportive care. MMODL / IJN: [id number] / YONATAN
[2017-08-19] MEDS ORDERED: LORazepam 0.5 MG TAB ONE (00:15)
[2017-08-19] MEDS: LEVOTHYROXINE 25 MCG TAB PO SCH (06:31)
[2017-08-19 07:18] LABS: Glucose,Whole Blood 203 mg/dL (75-99)
[2017-08-19 07:48] VITALS: BP 106/45; PULSE 49; RESP 16; TEMP 97.1
[2017-08-19] MEDS: AMIODARONE 200 MG TAB PO SCH (07:52)
[2017-08-19] MEDS: METOPROLOL TARTRATE 12.5 MG TAB PO SCH (07:52)
[2017-08-19] MEDS: TORSEMIDE 20 MG TAB PO SCH (07:52)
[2017-08-19] MEDS: ASPIRIN 325 MG TAB PO SCH (07:53)
[2017-08-19] MEDS: FAMOTIDINE 20 MG TAB PO SCH (07:53)
[2017-08-19] MEDS: HYDROCHLOROTHIAZIDE 25 MG TAB PO SCH (07:53)
[2017-08-19] MEDS: INSULIN ASPART 100 UNIT/ML 1 ML 10 ML VIAL SQ SCH ×2 (07:53→13:24)
[2017-08-19] MEDS: AMMONIUM LACTATE 12% LOTION 225 GM BTL TOPICAL SCH (07:53)
[2017-08-19] MEDS: Acetaminophen-Codeine 300-30mg TAB PO PRN (07:55)
[2017-08-19 09:31] VITALS: BMI 48.0
--- NOTE | 2017-08-19 10:25 | P.PN ---
Subjective Patient is seen in follow-up for end-stage renal disease. She is maintained on hemodialysis on a Thursday schedule. She underwent right foot second toe amputation due to gangrene. Denies chest pain or shortness of breath. Oral intake is fair. Currently sitting up in chair. No active complaints at this time. Vital signs are stable. General: The patient appeared well nourished and normally developed. HEENT: Head exam is unremarkable. Neck is without jugular venous distension. LUNGS: Lungs are clear to auscultation and percussion. Breath sounds decreased. HEART: Rate and Rhythm are regular. First and second heart sounds normal. No murmurs, rubs or gallops. ABDOMEN: Abdominal exam reveals normal bowel sounds. Non-tender and non- distended. No evidence of peritonitis. EXTREMITITES: Chronic skin changes noted. Right foot wrapped with drainage noted. Objective - Vital Signs Vital signs: Vital Signs Temp 97.1 F L 08/19/17 07:00 Pulse 49 L 08/19/17 07:00 Resp 16 08/19/17 07:00 BP 106/45 08/19/17 07:00 Pulse Ox 97 08/19/17 07:00 Intake & Output 08/18/17 08/19/17 08/19/17 18:59 06:59 18:59 Intake Total 240 Output Total 50 Balance 240 -50 Weight 131 kg 131 kg Intake: Oral 240 Output: Urine 50 Other: Voiding Method Bedside Commode Bedside Commode Bedside Commode # Voids 0 2 # Bowel Movements 1 # Emeses 1 - Labs CBC & Chem 7: 08/18/17 08:52 08/18/17 08:52 Labs: Abnormal Lab Results - Last 24 Hours (Table) 08/18/17 08/18/17 08/18/17 Range/Units 08:52 08:52 12:16 WBC 11.0 H (3.8-10.6) k/uL MCV 101.4 H (80.0-100.0) fL MCHC 30.0 L (31.0-37.0) g/dL Neutrophils # 8.6 H (1.3-7.7) k/uL Lymphocytes # 0.8 L (1.0-4.8) k/uL Potassium 5.5 H (3.5-5.1) mmol/L Carbon Dioxide 21 L (22-30) mmol/L BUN 55 H (7-17) mg/dL Creatinine 5.13 H* (0.52-1.04) mg/dL Glucose 173 H (74-99) mg/dL POC Glucose (mg/dL) 204 H (75-99) mg/dL Albumin 3.4 L (3.5-5.0) g/dL 08/18/17 08/18/17 08/19/17 Range/Units 17:04 20:35 07:14 WBC (3.8-10.6) k/uL MCV (80.0-100.0) fL MCHC (31.0-37.0) g/dL Neutrophils # (1.3-7.7) k/uL Lymphocytes # (1.0-4.8) k/uL Potassium (3.5-5.1) mmol/L Carbon Dioxide (22-30) mmol/L BUN (7-17) mg/dL Creatinine (0.52-1.04) mg/dL Glucose (74-99) mg/dL POC Glucose (mg/dL) 171 H 171 H 203 H (75-99) mg/dL Albumin (3.5-5.0) g/dL Assessment and Plan Plan: Assessment: #1. End-stage renal disease maintained on hemodialysis on a Thursday schedule via a permacath. Patient was started on hemodialysis in June 2017 after she had an acute [place]. There appears to be no recovery in her renal function. #2. Hyperphosphatemia secondary to chronic kidney disease and missed dialysis. Improved. #3. Lower extremity cellulitis maintained on antibiotics per infectious disease recommendations. Status post right foot second toe amputation. #4. Insulin-dependent diabetes mellitus. #5. History of coronary artery disease. #6. Metabolic acidosis secondary to chronic kidney disease. Plan: Hemodialysis tomorrow with goal 3-4 L ultrafiltration as able to tolerate. Encouraged oral intake.
[2017-08-19 10:32] LABS: Calcium 9.9 mg/dL (8.4-10.2)
[2017-08-19 11:06] LABS: Vancomycin,Random 26.9 ug/mL
[2017-08-19 12:23] LABS: Glucose,Whole Blood 162 mg/dL (75-99)
--- NOTE | 2017-08-19 15:13 | DS ---
DISCHARGE SUMMARY DISCHARGE MEDICATIONS: 1. Tylenol No. 3 q.4 hours p.r.n. for pain. 2. DuoNeb q.i.d. 3. Cordarone 400 mg daily. 4. Aspirin 325 daily. 5. Lipitor 40 daily. 6. Benadryl 50 q.8 hours p.r.n. 7. Pepcid 20 mg daily. 8. Hydrochlorothiazide 25 mg b.i.d. 9. Lac-Hydrin 12% topically b.i.d. 10.Lactulose 30 mg p.o. daily p.r.n. 11.Synthroid 25 mcg daily. 12.Ativan 0.5 mg q.6 hours p.r.n. 13.Lopressor 12.5 b.i.d. 14.Midodrine 5 mg p.o. a.c. b.i.d. p.r.n. for dialysis. 15.Demadex 20 mg daily. 16.Ciprofloxacin 500 mg p.o. q.24 hours for 7 days. 17.Doxycycline 100 mg p.o. b.i.d. for 14 days. CONDITION: Stable. PROGNOSIS: Guarded. Ambulate as tolerated. DIAGNOSES: 1. End-stage renal disease. 2. Amputation due to gangrene on the right 2nd toe. 3. Cellulitis of the lower extremities. 4. Diastolic heart failure. 5. Insulin-dependent diabetes mellitus. 6. Hypothyroidism. 7. Hypotension. 8. Predialysis treated with Midodrine. 9. Chronic wound infections treated with Cipro and doxycycline on discharge. HOSPITAL COURSE OF EVENTS: A white female came into the hospital with gangrene to the right 2nd toe, severe cellulitis infection of the lower legs. IV antibiotics were given for multiple days. Amputation of the second toe on the right foot was done by Dr. Dunn. Deep cultures came back negative for severe infection at which time, oral antibiotics were written for discharge. She will get dialysis 3 times a week, midodrine prior to dialysis. Follow with Dr. Watkins in the longterm. Diabetes control with IV with insulin and Accu-Chek protocol. Please see further orders in the chart. Leg elevation and local treatment with ammonium lactate 12% lotion to the legs topically b.i.d. will be given and oral antibiotics. Continue with dialysis 3 times a week. MMODL / IJN: [id number] /
--- NOTE | 2017-08-19 16:11 | PN ---
PROGRESS NOTE DATE OF SERVICE: 08/18/2017 SUBJECTIVE: This is a 71-year-old white female with gangrene and cellulitis of the right foot. She is improving. Cultures apparently are negative for any infection. Maybe oral antibiotics will be all that is needed. Due to extreme amount of fluid in her lower legs and extremities is what the legs red and giving some superficial cellulitis. Deep tissue cultures all have been negative. Discussed the case with Dr. Claire. No further surgery per vascular surgeon. Dialysis is going 3 times a week. Lungs are clear. GI: Soft. Oxygen is 93% on room air, temperature 97, pulse 50s, blood pressure 113/40. CARDIOVASCULAR: S1, S2. LUNGS: Transmitted upper sounds. ENDOCRINE: BMI is over 40. ASSESSMENT: 1. Cellulitis of the extremities. 2. Obesity. 3. Diabetes mellitus. 4. End-stage renal disease. 5. Status post toe amputation for gangrene. BUN is 55, creatinine 5.12. White count 11, hemoglobin 11.8. She will be discharged home on 08/19/2017. MMODL / IJN: [id number] /
[2017-08-19 17:16] LABS: Glucose,Whole Blood 226 mg/dL (75-99)
--- NOTE | 2017-08-19 17:50 | PN ---
PROGRESS NOTE DATE OF SERVICE: 08/19/2017 REASON FOR FOLLOWUP: Right second toe gangrene, status post amputation, and cellulitis. INTERVAL HISTORY: The patient is afebrile. She is breathing comfortably. Denies chest pain or cough. Right foot still has some swelling, though redness has decreased. Still has some clear drainage, though. PHYSICAL EXAMINATION: Blood pressure is 106/45 with a pulse of 49, temperature of 97.1. She is 97% on room air. General description is an elderly female up in the chair in no distress. RESPIRATORY SYSTEM: Unlabored breathing. Clear to auscultation anteriorly. HEART: S1, S2. Regular rate and rhythm. ABDOMEN: Soft. No tenderness. Right foot with some swelling, very minimal redness. Some clear drainage. LABS: BUN of 42, creatinine 4.41. Culture has been negative. DIAGNOSTIC IMPRESSION AND PLAN: Patient with right second toe gangrene, status post amputation. Patient needs elevation of the foot along with compression dressed to keep the swelling down. Antibiotic will be given; a short course of oral Cipro and doxycycline. Aquacel Silver dressing to the wound and close outpatient followup. MMODL / IJN: [id number] /
== END 2017-08-19 17:24 | DRG 255 ==
LOC: EC 18:03 → 4MS4W 18:41
PROVIDERS: ADMIT Family Medicine; ATTEND Family Medicine
PROC: 5A1D70Z Performance of Urinary Filtration, Intermittent, Less than 6 Hours Per Day (ICD-10-PCS; 2017-08-11)
PROC: 0Y6R0Z1 Detachment at Right 2nd Toe, High, Open Approach (ICD-10-PCS; principal; 2017-08-14 13:30)
DX: E11.52 Type 2 diabetes mellitus with diabetic peripheral angiopathy with gangrene (principal); N18.6 End stage renal disease; I13.2 Hypertensive heart and chronic kidney disease with heart failure and with stage 5 chronic kidney disease, or end stage renal disease; E87.2 Acidosis; E11.22 Type 2 diabetes mellitus with diabetic chronic kidney disease; E11.621 Type 2 diabetes mellitus with foot ulcer; E66.01 Morbid (severe) obesity due to excess calories; L03.115 Cellulitis of right lower limb; I50.32 Chronic diastolic (congestive) heart failure; L03.116 Cellulitis of left lower limb; E03.9 Hypothyroidism, unspecified; E78.5 Hyperlipidemia, unspecified; E83.39 Other disorders of phosphorus metabolism; I25.10 Atherosclerotic heart disease of native coronary artery without angina pectoris; I25.2 Old myocardial infarction; J44.9 Chronic obstructive pulmonary disease, unspecified; L97.519 Non-pressure chronic ulcer of other part of right foot with unspecified severity; L97.529 Non-pressure chronic ulcer of other part of left foot with unspecified severity; Z79.4 Long term (current) use of insulin; Z79.82 Long term (current) use of aspirin; Z79.899 Other long term (current) drug therapy; Z80.1 Family history of malignant neoplasm of trachea, bronchus and lung; Z80.3 Family history of malignant neoplasm of breast; Z82.49 Family history of ischemic heart disease and other diseases of the circulatory system; Z83.3 Family history of diabetes mellitus; Z87.891 Personal history of nicotine dependence; Z95.1 Presence of aortocoronary bypass graft; Z99.2 Dependence on renal dialysis; Z98.84 Bariatric surgery status; Z88.5 Allergy status to narcotic agent; Z91.040 Latex allergy status
CPT/HCPCS: 80048; 80053; 80202; 83036; 83735; 84100; 85025; 85652; 86140; 87070; 87075; 87102; 87205; 90935; 94760; 99285